=== PATIENT | female | born 1960 ===

== ENCOUNTER 2022-01-27 01:54 | Emergency (ER) | payer BC ==
[2022-01-27] MEDS ORDERED: Sodium Chloride 0.9% 1,000 ML IV SCH (02:30)
[2022-01-27] MEDS ORDERED: Ibuprofen 600 MG Tab PO ONE (03:47)
== END 2022-01-27 04:04 | disposition home or self-care (01) ==
LOC: JD.ED 01:54
DX: M54.2 Cervicalgia (principal); M79.602 Pain in left arm; I10 Essential (primary) hypertension; Z88.0 Allergy status to penicillin; Z88.8 Allergy status to other drugs, medicaments and biological substances; Z86.16 Personal history of COVID-19
CPT/HCPCS: 36415; 70491; 80053; 84484; 85007; 85027; 86140; 93005; 99284; A9270; J7030; 93010; 99285